=== PATIENT | male | born 1985 | race Caucasian/White ===

== ENCOUNTER 2017-07-30 00:31 | Emergency (ER) | payer OTHER ==
[~2017-07-30] VITALS: Ht 167.6 cm; Wt 120.0 kg
[2017-07-30 00:34] VITALS: Ht 167.6 cm; Wt 120.0 kg
[2017-07-30] MEDS ORDERED: predniSONE 20 MG TAB PO STA (01:06)
[2017-07-30] MEDS ORDERED: ALBUTEROL 0.083% (NEB) 2.5 MG/3 ML AMP NEB STA ×2 (01:06→01:15)
[2017-07-30] MEDS ORDERED: IPRATROPIUM (NEB) 0.5 MG/2.5 ML AMP NEB STA (01:06)
--- NOTE | 2017-07-30 01:43 | ERD ---
ER Documentation Chief Complaint Chief Complaint c/o SB and productive cough x 1 day. (+) Exp. wheeze. HPI 32-year-old male presents complaining of shortness of breath and asthma exacerbation for the past day. He also has intermittent productive cough. No fever. He has asthma but does not have an inhaler at home. His vaccinations are up-to-date. No hemoptysis. No unplanned weight loss. No chest pain. ROS All systems reviewed and are negative except as per history of present illness. FmHx Family History: No diabetes Physical Exam Vitals Vital Signs Date Time Temp Pulse Resp B/P Pulse Ox O2 Delivery O2 Flow Rate FiO2 07/30/17 01:23 Simple Mask 07/30/17 01:19 82 20 98 21 07/30/17 00:34 97.2 95 18 144/104 97 Physical Exam Const: [] Head: Atraumatic Eyes: Normal Conjunctiva ENT: Normal External Ears, Nose and Mouth. Neck: Full range of motion..~ No meningismus. Resp: Wheezing bilaterally, no use of accessory muscles Cardio: Regular rate and rhythm, no murmurs Results 24 hrs Current Medications Medications (Trade) Dose Ordered Sig/[place] Route PRN Reason Start Time Stop Time Status Last Admin Dose Admin Albuterol (Proventil 0.083% (Neb)) 2.5 mg ONCE STAT NEB 07/30/17 01:06 07/30/17 01:07 DC 07/30/17 01:18 Ipratropium [place] (Atrovent 0.02% (Neb)) 0.5 mg ONCE STAT NEB 07/30/17 01:06 07/30/17 01:07 DC 07/30/17 01:18 Prednisone (Prednisone) 60 mg ONCE STAT PO 07/30/17 01:06 07/30/17 01:07 DC 07/30/17 01:27 Albuterol (Proventil 0.083% (Neb)) 2.5 mg ONCE STAT NEB 07/30/17 01:15 07/30/17 01:16 DC 07/30/17 01:19 Procedures/MDM 32-year-old male presents with asthma exacerbation. He was given prednisone and a breathing treatment with improvement of his symptoms and his discharge with prednisone and albuterol inhaler. Patient counseled regarding my diagnostic impression and care plan. Prior to discharge all questions answered. Pt agrees with treatment plan and understands strict return precautions. Pt is instructed to follow up with primary care provider within 24-48 hours. Precautionary instructions provided including instructions to return to the ER if not improving or for any worsening or changing symptoms or concerns. Departure Condition: CLIFTON Boothe PA-C Jul 30, 2017 01:43
[2017-07-30] MEDS ORDERED: ALBU8.5H3 INH (01:44)
[2017-07-30] MEDS ORDERED: PRED20TA PO (01:44)
[2017-07-30 02:03] VITALS: PULSE 89; RESP 22; TEMP 98.6
== END 2017-07-30 01:58 | disposition home or self-care (01) ==
LOC: FTE 00:31
DX: J45.901 Unspecified asthma with (acute) exacerbation (principal)
CPT/HCPCS: 94664; 99284; J7512